=== PATIENT | female | born 1945 | race Caucasian/White ===

== ENCOUNTER → 2017-07-10 | Emergency (ER) | payer OTHER ==
[~2017-07-10] VITALS: Ht 165.1 cm; Wt 90.7 kg
[~2017-07-10] MED LIST: METFORMIN HYDRO25 GM
== END | disposition home or self-care (01) ==
LOC: ER 16:41
DX: J09.X2 Influenza due to identified novel influenza A virus with other respiratory manifestations (principal); B34.9 Viral infection, unspecified